=== PATIENT | male | born 1980 | race Caucasian/White ===

== ENCOUNTER 2020-04-13 17:08 | Outpatient (CLI) | payer OTHER ==
[2020-04-13 17:36] LABS: BASOPHILS # (AUTO) 0.1 K/uL (0.00-0.22); BASOPHILS % (AUTO) 0.7 % (0.0-2.0); EOSINOPHILS # (AUTO) 0.6 K/uL (0-0.4); EOSINOPHILS % (AUTO) 6.9 % (0.0-4.0); HEMATOCRIT 39.5 % (36-52); HEMOGLOBIN 12.2 g/dL (12.0-18.0); LYMPHOCYTES # (AUTO) 2.6 K/uL (2.0-11.5); LYMPHOCYTES % (AUTO) 29.6 % (20.5-51.1); MEAN CORPUSCULAR HEMOGLOBIN 19 pg (27-31); MEAN CORPUSCULAR HGB CONC 31 g/dL (33-37); MEAN CORPUSCULAR VOLUME 60.6 fL (80-94); MONOCYTES # (AUTO) 0.5 K/uL (0.8-1.0); NEUTROPHILS # (AUTO) 5.1 K/uL (1.8-7.7); NEUTROPHILS % (AUTO) 56.8 % (42.2-75.2); PLATELET COUNT (AUTO) 178 K/uL (140-450); RED BLOOD CELL COUNT(AUTO) 6.53 MIL/uL (4.20-6.10); RED CELL DISTRIBUTION WIDTH 16.1 % (11.6-13.7); WHITE BLOOD COUNT (AUTO) 8.9 K/uL (4.8-10.8)
[2020-04-13 18:13] LABS: ALBUMIN 4.6 g/dL (3.4-5.0); ANION GAP 15.2 (8-16); BILIRUBIN,DIRECT 0.2 mg/dL (0.0-0.3); CARBON DIOXIDE 26.6 mmol/L (21-32); CREATININE 0.9 mg/dL (0.6-1.3); POTASSIUM 3.8 mmol/L (3.5-5.1); TOTAL BILIRUBIN 0.9 mg/dL (0.0-1.0)
[2020-04-16 09:06] LABS: ANTI-NUCLEAR ANTIBODY,DIRECT Negative (Negative)
== END 2020-04-13 22:02 | disposition home or self-care (01) ==
LOC: MLB 17:08
PROVIDERS: ATTEND Internal Medicine Pulmonary Disease
DX: M32.9 Systemic lupus erythematosus, unspecified (principal); R07.9 Chest pain, unspecified
CPT/HCPCS: 36415; 71045; 80053; 80076; 83036; 84154; 85025; 85651; 86038; 86140

== ENCOUNTER 2020-06-22 11:34 | Outpatient (CLI) | payer OTHER ==
[2020-06-23 17:08] LABS: ANTI DOUBLE STRANDED DNA AB <1 IU/mL (0 - 9)
== END 2020-06-22 20:07 | disposition home or self-care (01) ==
LOC: MLB 11:34
PROVIDERS: ATTEND Internal Medicine Pulmonary Disease
DX: M32.9 Systemic lupus erythematosus, unspecified (principal)
CPT/HCPCS: 36415; 85613; 86038

== ENCOUNTER 2020-09-19 11:04 | Outpatient (CLI) | payer OTHER ==
[2020-09-20 09:06] LABS: FERRITIN 230 ng/mL (30-400)
== END 2020-09-19 21:00 | disposition home or self-care (01) ==
LOC: MLB 11:04
PROVIDERS: ATTEND Internal Medicine Gastroenterology
DX: K21.9 Gastro-esophageal reflux disease without esophagitis (principal); D64.9 Anemia, unspecified; K30 Functional dyspepsia
CPT/HCPCS: 36415; 82272; 82728; 83021; 83540; 85045